=== PATIENT | female | born 1945 | race Caucasian/White ===

== ENCOUNTER 2020-09-04 12:20 | Emergency (ER) | payer OTHER ==
--- NOTE | 2020-09-04 13:40 | RAD REPORT ---
EXAM DESCRIPTION: CT - Head C Spine Mpr Wo Con - 09/04/2020 1:14 pm CLINICAL HISTORY: Head and neck injury status post fall. Head and neck pain COMPARISON: None. TECHNIQUE: Computed axial tomography of the head and cervical spine was obtained. Sagittal and coronal reconstruction was performed. All CT scans are performed using dose optimization technique as appropriate and may include automated exposure control or mA/KV adjustment according to patient size. FINDINGS: An intracranial bleed is not seen. Mild low-density areas periventricular, deep and subcor tical white matter likely ischemic changes secondary to small vessel disease. The ventricles are normal in caliber. An extra-axial fluid collection is not noted.Fluid within the v isualized sinuses and mastoids is not seen 9 millimeter round structure left sylvian fissure A cervical fracture is not visualized. No dislocation is noted. IMPRESSION: No acute intracranial abnormality is seen. A cervical fracture is not visualized. If the patient continues to have symptoms to suggest intracra nial /spinal cord pathology then MRI would be recommended 9 millimeter round structure within the left sylvian fissure may represent the patient's known cerebr al aneurysm
[2020-09-04] MEDS ORDERED: MORPHINE 4 MG/ML SYR ONE (13:53)
[2020-09-04] MEDS ORDERED: ONDANSETRON 4 MG (ODT) TAB ONE (13:54)
--- NOTE | 2020-09-04 14:09 | RAD REPORT ---
EXAM DESCRIPTION: CT - Facial Bones W/ Mpr - 09/04/2020 1:14 pm CLINICAL HISTORY: Facial injury status post fall COMPARISON: None TECHNIQUE: Computed axial tomography of the face was obtained. Coronal and sagittal reconstruction w as performed. All CT scans are performed using dose optimization technique as appropriate and may include automated exposure control or mA/KV adjustment according to patient size. FINDINGS: A fracture is not seen. A TMJ dislocation is not noted. The globes are intact. Fluid within the sinuses is not seen. IMPRESSION: Negative for a facial fracture.
--- NOTE | 2020-09-04 14:47 | EDPHYS ---
Physician Documentation [facility] Name: Ruthy Cooper Age: 75 yrs Sex: Female : 1945 Arrival Date: 09/04/2020 Time: 12:20 Bed 20 Private MD: ED Physician Joshua Zhang HPI: 09/04 14:24 This 75 yrs old Female presents to ER via EMS with complaints of Fall Injury. pm1 14:24 Details of fall: The patient fell from an upright position, while walking. Onset: The pm1 symptoms/episode began/occurred just prior to arrival. Associated injuries: The patient sustained injury to the head, abrasion. Severity of symptoms: in the emergency department the symptoms are unchanged. The patient has not experienced similar symptoms in the past. The patient has not recently seen a physician. Patient concerned over injury due to reported brain aneurysm that is [address] about 6 months ago. 14:24 Patient tripped on furniture in her hotel room. pm1 Historical: - Allergies: 12:23 No Known Allergies; hb - PMHx: 12:24 Brain aneurysm; hb - Immunization history: Last tetanus immunization: - up to date. - Social history:: Smoking status: Patient denies any tobacco usage or history of. ROS: 14:24 Constitutional: Negative for fever, chills, and weight loss, Cardiovascular: Negative pm1 for chest pain, palpitations, and edema, Respiratory: Negative for shortness of breath, cough, wheezing, and pleuritic chest pain, Abdomen/GI: Negative for abdominal pain, nausea, vomiting, diarrhea, and constipation, Back: Negative for injury and pain. 14:24 MS/Extremity: Negative for injury and deformity. 14:24 Neuro: Negative for headache, weakness, numbness, tingling, and seizure. 14:24 Neck: Positive for of the left trapezius, pain. 14:24 Skin: Positive for abrasion(s), of the forehead and left cheek. Exam: 14:24 Constitutional: This is a well developed, well nourished patient who is awake, alert, pm1 and in no acute distress. 14:24 Eyes: Pupils equal round and reactive to light, extra-ocular motions intact. Lids and lashes normal. Conjunctiva and sclera are non-icteric and not injected. Cornea within normal limits. Periorbital areas with no swelling, redness, or edema. Neck: Trachea midline, no thyromegaly or masses palpated, and no cervical lymphadenopathy. Supple, full range of motion without nuchal rigidity, or vertebral point tenderness. No Meningismus. Chest/axilla: Normal chest wall appearance and motion. Nontender with no deformity. No lesions are appreciated. 14:24 Back: No spinal tenderness. No costovertebral tenderness. Full range of motion. MS/ Extremity: Pulses equal, no cyanosis. Neurovascular intact. Full, normal range of motion. 14:24 Head/face: Noted is no obvious of injury or deformity except abrasion(s), that are mild, of the left cheek and forehead. 14:24 Cardiovascular: Exam negative for acute changes, Rate: normal, Rhythm: regular, Pulses: no pulse deficits are appreciated. 14:24 Respiratory: Exam negative for acute changes, respiratory distress, shortness of breath. 14:24 Neuro: Exam negative for acute changes, Orientation: is normal, Mentation: is normal, Motor: is normal, moves all fours, Sensation: is normal, no obvious gross deficits. Vital Signs: 12:22 BP 110 / 72; Pulse 53; Resp 16; Temp 97.8; Pulse Ox 100% on R/A; Pain 5/10; hb 12:45 BP 112 / 74; Pulse 55; Resp 16; Pulse Ox 99% on R/A; Pain 8/10; hb 13:45 BP 105 / 68; Pulse 54; Resp 16; Pulse Ox 97% on R/A; hb 14:45 BP 110 / 70; Pulse 55; Resp 16; Pulse Ox 99% on R/A; Pain 4/10; hb Bernardino Coma Score: 12:15 Eye Response: spontaneous(4). Verbal Response: oriented(5). Motor Response: obeys hb commands(6). Total: 15. Trauma Score (Adult): 12:15 Eye Response: spontaneous(1); Verbal Response: oriented(1); Motor Response: obeys hb commands(2); Systolic BP: > 89 mm Hg(4); Respiratory Rate: 10 to 29 per min(4); Bernard[place] Score: 15; Trauma Score: 12 12:45 Eye Response: spontaneous(1); Verbal Response: oriented(1); Motor Response: obeys hb commands(2); Systolic BP: > 89 mm Hg(4); Respiratory Rate: 10 to 29 per min(4); [place] Score: 15; Trauma Score: 12 13:45 Eye Response: spontaneous(1); Verbal Response: oriented(1); Motor Response: obeys hb commands(2); Systolic BP: > 89 mm Hg(4); Respiratory Rate: 10 to 29 per min(4); [place] Score: 15; Trauma Score: 12 14:45 Eye Response: spontaneous(1); Verbal Response: oriented(1); Motor Response: obeys hb commands(2); Systolic BP: > 89 mm Hg(4); Respiratory Rate: 10 to 29 per min(4); [place] Score: 15; Trauma Score: 12 MDM: 12:23 Patient medically screened. pm1 13:42 ED course: Reports tetanus is up to date. pm1 14:25 Data reviewed: vital signs. Data interpreted: Pulse oximetry: on room air is 97 %. pm1 Interpretation: normal. 14:36 Counseling: I had a detailed discussion with the patient and/or guardian regarding: the pm1 historical points, exam findings, and any diagnostic results supporting the discharge/admit diagnosis, radiology results, the need for outpatient follow up, to return to the emergency department if symptoms worsen or persist or if there are any questions or concerns that arise at home. 09/04 12:53 Order name: CT Head C Spine; Complete Time: 14:24 pm1 09/04 12:53 Order name: CT Facial Bones W/O Con; Complete Time: 14:24 pm1 Administered Medications: 13:42 Drug: Zofran (Ondansetron) 4 mg Route: PO; hb 14:30 Follow up: Response: No adverse reaction hb 13:43 Drug: morphine 4 mg Route: IM; Site: right deltoid; hb 14:30 Follow up: Response: No adverse reaction hb Disposition: 09/05 06:19 Co-signature as Attending Physician, Joshua Zhang MD I agree with the assessment and pancho plan of care. Disposition: 09/04/20 14:47 Discharged to Home. Impression: Fall on same level from slipping, tripping and stumbling, Abrasion of unspecified part of head - left cheek and forehead, Superficial injury of head. - Condition is Stable. - Discharge Instructions: Abrasion, Head Injury, Adult. - Prescriptions for Tramadol 50 mg Oral Tablet - take 1 tablet by ORAL route every 8 hours as needed; 12 tablet. Zofran ODT 4 mg Oral tablet,disintegrating - place 1 tablet by TRANSLINGUAL route every 8 hours As needed; 12 tablet. - Medication Reconciliation Form, Thank You Letter, Antibiotic Education, Prescription Opioid Use form. - Follow up: Emergency Department; When: As needed; Reason: Worsening of condition. Follow up: Private Physician; When: 2 - 3 days; Reason: Recheck today's complaints, Continuance of care, Re-evaluation by your physician. - Problem is new. - Symptoms have improved. Signatures: Dispatcher [employer] EDMS Joshua Zhang, Ty West MD, cha, INDEPENDENT CROP CONSULTANT INDEPENDENT CROP CONSULTANT pm1 Talisha James RN RN Corrections: (The following items were deleted from the chart) 09/04 15:06 14:47 09/04/2020 14:47 Discharged to Home. Impression: Fall on same level from slipping, tripping and stumblingAbrasion of unspecified part of head - left cheek and forehead; Superficial injury of head. Condition is Stable. Forms are Medication Reconciliation Form, Thank You Letter, Antibiotic Education, Prescription Opioid Use. Follow up: Emergency Department; When: As needed; Reason: Worsening of condition. Follow up: Private Physician; When: 2 - 3 days; Reason: Recheck today's complaints, Continuance of care, Re-evaluation by your physician. Problem is new. Symptoms have improved. pm1
--- NOTE | 2020-09-04 14:47 | ER ---
Nurse's Notes [facility] Name: Ruthy Cooper Age: 75 yrs Sex: Female : 1945 Arrival Date: 09/04/2020 Time: 12:20 Bed 20 Private MD: Diagnosis: Abrasion of unspecified part of head-left cheek and forehead;Superficial injury of head;Fall on same level from slipping, tripping and stumbling Presentation: 09/04 12:11 Chief complaint: EMS states: Mechanical fall from standing while ambulating in living hb room, abrasions to left side of face noted. Negative LOC. Takes ASA and Plavix. Care prior to arrival: None. Mechanism of Injury: Fall from standing position. Trauma event details: Injury occurred in the [facility], Injury occurred: Hotel Injury occurred: September 04, 2020. 12:11 Acuity: GREGORY 2 hb 12:11 Method Of Arrival: EMS: [facility] 12:22 Coronavirus screen: At this time, the client does not indicate any symptoms associated hb with coronavirus-19. Ebola Screen: No symptoms or risks identified at this time. Initial Sepsis Screen: Does the patient meet any 2 criteria? No. Patient's initial sepsis screen is negative. Does the patient have a suspected source of infection? No. Patient's initial sepsis screen is negative. Risk Assessment: Do you want to hurt yourself or someone else? Patient reports no desire to harm self or others. Onset of symptoms was September 04, 2020. Trauma Activation: Alert Physician: ED Physician; Name: ; Notified At: ; Arrived At: Physician: General Surgeon; Name: ; Notified At: ; Arrived At: Physician: Radiology; Name: ; Notified At: ; Arrived At: Physician: Respiratory; Name: ; Notified At: ; Arrived At: Physician: Lab; Name: ; Notified At: ; Arrived At: Historical: - Allergies: 12:23 No Known Allergies; hb - PMHx: 12:24 Brain aneurysm; hb - Immunization history: Last tetanus immunization: - up to date. - Social history:: Smoking status: Patient denies any tobacco usage or history of. Screenin:15 Abuse screen: Denies threats or abuse. Denies injuries from another. Tuberculosis hb screening: No symptoms or risk factors identified. 13:18 Nutritional screening: No deficits noted. Fall Risk None identified. hb Primary Survey: 12:22 NO uncontrolled hemorrhage observed. A: The patient is alert. Airway: patent. hb Breathing/Chest: Respiratory pattern: regular, Respiratory effort: spontaneous, unlabored, Chest inspection: symmetrical rise and fall of the chest. Circulation: Skin color: pink. Disability Alert. Exposure/Environment: There is no evidence of uncontrolled external bleeding. A warming method has been applied: A warm blanket has been provided to the patient. 12:45 Reassessment Airway Airway Patent Breathing/Chest Respiratory pattern Regular hb Respiratory effort Spontaneous Unlabored Chest inspection Symmetrical Circulation Color [place] Disability Alert. 13:45 Reassessment Airway Airway Patent Breathing/Chest Respiratory pattern Regular hb Respiratory effort Spontaneous Unlabored Chest inspection Symmetrical Circulation Color [place] Temperature Warm Dry Disability Alert. 14:45 Reassessment Airway Airway Patent Breathing/Chest Respiratory pattern Regular hb Respiratory effort Spontaneous Unlabored Chest inspection Symmetrical Circulation Color [place] Temperature Warm Dry Disability Alert. Secondary Survey: 12:25 HEENT: Face Other abrasions and bruising noted to left side of face. Gastrointestinal: hb No deficits noted. : No deficits noted. No signs and/or symptoms were reported regarding the genitourinary system. Musculoskeletal: Reports left leg pain. Assessment: 12:16 General: Appears in no apparent distress. Behavior is calm, cooperative. Pain: Pain hb currently is 5 out of 10 on a pain scale. Neuro: Level of Consciousness is awake, alert, obeys commands, Oriented to person, place, time, situation. EENT: abrasions and bruising noted to left side of face. Cardiovascular: Capillary refill < 3 seconds Patient's skin is warm and dry. Respiratory: Respiratory effort is even, unlabored, Respiratory pattern is regular, symmetrical. GI: No signs and/or symptoms were reported involving the gastrointestinal system. : No signs and/or symptoms were reported regarding the genitourinary system. Derm: Skin is pink, warm \T\ dry. Musculoskeletal: Reports left leg pain. 12:45 Reassessment: Patient appears in no apparent distress at this time. Patient and/or hb family updated on plan of care and expected duration. Pain level reassessed. Patient is alert, oriented x 3, equal unlabored respirations, skin warm/dry/pink. 13:45 Reassessment: Patient appears in no apparent distress at this time. Patient and/or hb family updated on plan of care and expected duration. Pain level reassessed. Patient is alert, oriented x 3, equal unlabored respirations, skin warm/dry/pink. 14:45 Reassessment: Patient appears in no apparent distress at this time. Patient and/or hb family updated on plan of care and expected duration. Pain level reassessed. Patient is alert, oriented x 3, equal unlabored respirations, skin warm/dry/pink. Vital Signs: 12:22 BP 110 / 72; Pulse 53; Resp 16; Temp 97.8; Pulse Ox 100% on R/A; Pain 5/10; hb 12:45 BP 112 / 74; Pulse 55; Resp 16; Pulse Ox 99% on R/A; Pain 8/10; hb 13:45 BP 105 / 68; Pulse 54; Resp 16; Pulse Ox 97% on R/A; hb 14:45 BP 110 / 70; Pulse 55; Resp 16; Pulse Ox 99% on R/A; Pain 4/10; hb [place] Coma Score: 12:15 Eye Response: spontaneous(4). Verbal Response: oriented(5). Motor Response: obeys hb commands(6). Total: 15. Trauma Score (Adult): 12:15 Eye Response: spontaneous(1); Verbal Response: oriented(1); Motor Response: obeys hb commands(2); Systolic BP: > 89 mm Hg(4); Respiratory Rate: 10 to 29 per min(4); [place] Score: 15; Trauma Score: 12 12:45 Eye Response: spontaneous(1); Verbal Response: oriented(1); Motor Response: obeys hb commands(2); Systolic BP: > 89 mm Hg(4); Respiratory Rate: 10 to 29 per min(4); [place] Score: 15; Trauma Score: 12 13:45 Eye Response: spontaneous(1); Verbal Response: oriented(1); Motor Response: obeys hb commands(2); Systolic BP: > 89 mm Hg(4); Respiratory Rate: 10 to 29 per min(4); [place] Score: 15; Trauma Score: 12 14:45 Eye Response: spontaneous(1); Verbal Response: oriented(1); Motor Response: obeys hb commands(2); Systolic BP: > 89 mm Hg(4); Respiratory Rate: 10 to 29 per min(4); [place] Score: 15; Trauma Score: 12 ED Course: 12:15 Patient has correct armband on for positive identification. Bed in low position. Call hb light in reach. 12:15 Patient maintains SpO2 saturation greater than 95% on room air. hb 12:15 Thermoregulation: warm blanket given to patient. hb 12:20 Patient arrived in ED. hb 12:22 Triage completed. hb 12:23 Ty Ahmadi NP is PHCP. pm1 12:23 Joshua Zhang MD is Attending Physician. pm1 12:24 Arm band placed on. hb 13:01 Talisha James, RN is Primary Nurse. hb 13:14 CT Facial Bones W/O Con In Process Unspecified. EDMS 13:14 CT Head C Spine In Process Unspecified. EDMS 15:03 No provider procedures requiring assistance completed. Patient did not have IV access hb during this emergency room visit. Administered Medications: 13:42 Drug: Zofran (Ondansetron) 4 mg Route: PO; hb 14:30 Follow up: Response: No adverse reaction hb 13:43 Drug: morphine 4 mg Route: IM; Site: right deltoid; hb 14:30 Follow up: Response: No adverse reaction hb Intake: 12:15 PO: 0ml; Total: 0ml. hb Outcome: 14:47 Discharge ordered by . pm1 15:03 Discharged to home via wheelchair. hb 15:03 Condition: stable 15:03 Discharge instructions given to patient, Instructed on discharge instructions, follow up and referral plans. medication usage, Demonstrated understanding of instructions, follow-up care, medications, Prescriptions given X 2. 15:04 Patient's length of stay in the Emergency Department was greater than 2 hours. awaiting hb dispo and transportation Patient's length of stay extended due to 15:06 Patient left the ED. hb Signatures: Dispatcher [employer] EDMS Ty Ahmadi NP TRANSMISSION REBUILDER pm1 Talisha James, RN RN hb
[2020-09-04 15:13] VITALS: TEMP 97.8
[2020-09-04 15:17] VITALS: BP 110/70; O2SAT 99
== END 2020-09-04 15:06 | disposition home or self-care (01) ==
LOC: ER 12:20
DX: S00.81XA Abrasion of other part of head, initial encounter (principal); W18.09XA Striking against other object with subsequent fall, initial encounter; Y93.01 Activity, walking, marching and hiking; Y92.59 Other trade areas as the place of occurrence of the external cause
CPT/HCPCS: 70450; 70486; 72125; 76377; 96372; 99284; G0390